=== PATIENT | female | born 2000 | race Caucasian/White ===

== ENCOUNTER 2023-07-28 11:51 | Emergency (ER) | payer OTHER, SELFPAY ==
[2023-07-28 11:55] VITALS: BP 122/85
--- NOTE | 2023-07-28 12:42 | ED.GENMED ---
History of Present Illness
General
Chief Complaint: Anxiety
Source: patient
Exam Limitations: none
Time Seen by Provider: 07/28/23 12:23
Nursing documentation reviewed up to this point in time: agreed with
Travel History
Have you had any contact with someone who has COVID-19?: No
Do you have any symptoms of coronavirus? Fever > 100 degrees, chills, cough, shortness of breath, sore throat, loss of taste or smell, muscle aches, or headache?: No
History of Present Illness
History of Present Illness:
22-year-old female presents to the ER for evaluation of acute anxiety. Patient complains of feeling very anxious restless feels like she is unable to sit still. She has no appetite. She had similar symptoms yesterday was seen at [facility]. She was given 1 oral Ativan and sent home. She believes she has a history of anxiety but has never been evaluated or had therapy for this. She is not on any medications. She reports is a lot of family things going on which she thinks
is triggering this. She dropped out of college and quit her job. She currently lives with a partner. She does feel safe at home. She denies any suicidal thoughts.
She reports because of her symptoms she cannot eat and is unable to calm down.
Past History
Past History
ED Past Medical History: None
ED Past Surgical History: None
Social History
Tobacco: Non-smoker
Alcohol: None
Drug: None
Personal: Single
Employment: Student
Review of Systems
Review of Systems
Allergies reviewed?: Yes
Other source history: other (Patient's partner)
All Other Systems: ROS reviewed and negative except as documented in HPI and ROS
Constitutional: Reports no symptoms
Respiratory: Reports no symptoms
Cardiac: Reports no symptoms
ABD/GI: Reports no symptoms
: Reports no symptoms
Musculoskeletal: Reports no symptoms
Skin: Reports no symptoms
Endocrine: Reports no symptoms
Hematologic/Lymphatic: Reports no symptoms
Psychiatric: Reports anxiety; Denies suicidal
Phy Exam
General Physical Exam
General Presentation: no apparent distress
General age: appears stated age
General Skin: warm and dry
General Habitus: normal
General Mental: alert
General Hydration: appears well hydrated
Cardiovascular Exam
Cardiovascular Exam: regular rate/rhythm, no murmur and normal peripheral pulses
Pulmonary Exam
Pulmonary Exam: lungs clear and no respiratory distress
Neurological Exam
Neurological Exam: alert and oriented x3
Skin Exam
Skin Exam: normal color and warm/dry
Psychiatric Exam
Psychiatric Exam: anxious and other (Tearful)
Course
Orders/Labs/Results
Orders:
Orders
07/28/23 12:40
Lorazepam [Ativan] 0.5 mg PO NOW STA
07/28/23 12:44
Crisis Consult Urgent
Reason for Consult: eval for acute anxiety attack
07/28/23 13:28
Ondansetron Orally Disint [Zofran Odt (Orally Disintegrating)] 4 mg PO NOW STA
Vital Signs
Initial and Last Documented VS:
Initial Vital Signs
Temp Pulse Resp BP Pulse Ox
97.7 F 121 18 122/85 98
07/28/23 11:55 07/28/23 11:55 07/28/23 11:55 07/28/23 11:55 07/28/23 11:55
Last Documented Vital Signs
Temp Pulse Resp BP Pulse Ox
97.7 F 85 18 122/85 98
07/28/23 11:55 07/28/23 13:36 07/28/23 11:55 07/28/23 11:55 07/28/23 11:55
MDM/Problems Addressed
Differential Diagnosis Includes:
not limited to : anxiety
MDM/Problems Addressed:
Symptoms are consistent with anxiety. Patient admits to feeling very anxious has a lot of family issues going on at the moment especially regarding father. She reports she quit school quit her job and has had anxiety. She denies any suicidal
thoughts. She was at [facility] yesterday given 1 dose of Ativan but not given any outpatient resources. Today patient reports anxiety is the same she feels very anxious cannot calm himself down. She has no other physical complaints.
She denies suicidal thoughts. Patient initially was tachycardic on arrival however after speaking the patient heart rate decreased. She was given 1 small dose of 0.5 mg of Ativan here in the ER. I did have crisis evaluate patient they gave her
outpatient resources. She was monitored here I did discuss with patient and partner the importance of following up for outpatient resources to further discuss and treat anxiety.
*Pulse Oximetry
Patient hypoxic: no
*Critical Care Note
Total Time (30-74mins, 75-104mins- exclusive of procedures): Not Applicable
ED Attending Note
-
Portions of this chart may have been created with voice recognition software.� Occasional wrong word or��sound alike� substitutions may have occurred due to the inherent limitations of voice recognition software.
Discharge Plan
Departure
Patient Disposition: Home (Routine Discharge)
Date of Disposition: 07/28/23
Time of Disposition: 14:40
Patient with high blood pressure during this ER visit?: Yes
Condition: Fair
Covid-19: Not Applicable
Discharge Problem:
Anxiety
Instructions: Anxiety, Adult (DC), BLOOD PRESSURE
Referrals:
NONE,* [Family Provider] -
Activity Restrictions/Additional Instructions:
As discussed you were given information for outpatient resources for further evaluation and treatment of anxiety .
Return if any worsening of symptoms including if any suicidal thoughts.
Interventions
Interventions:
*Risk Screen - Suicide Last Done: 07/28/23 13:08
*Neglect/Abuse Screening Last Done: 07/28/23 13:08
*ED COVID-19 Vaccine History Last Done: 07/28/23 11:58
ED-Psychological Assessment Last Done: 07/28/23 12:49
Discharge Date and Time
Print Language: LEBANESE
[2023-07-28] MEDS: ATIVAN 0.5 MG PO (12:47)
[2023-07-28] MEDS: ZOFRAN ODT (ORALLY DISINTEGRATING) 4 MG PO (13:31)
== END 2023-07-28 14:49 | disposition home or self-care (01) ==
LOC: EMR 11:51
PROVIDERS: EMERGENCY PHYSICIAN Student in an Organized Health Care Education/Training Program
DX: F41.9 Anxiety disorder, unspecified (principal); R03.0 Elevated blood-pressure reading, without diagnosis of hypertension; Z63.9 Problem related to primary support group, unspecified
CPT/HCPCS: 99283

== ENCOUNTER 2023-07-29 11:54 | Emergency (ER) | payer OTHER, SELFPAY ==
[2023-07-29 11:58] VITALS: BP 130/85; BMI 24.2
[2023-07-29] MEDS: ATIVAN 1 MG PO (14:13)
[2023-07-29] MEDS: PROTONIX IV 40 MG IV (14:22)
[2023-07-29] MEDS: NSS 1000 IV (14:23)
[2023-07-29 14:37] LABS: Hematocrit 41.1 % (37.0-47.0); Hemoglobin 14.6 g/dL (12.0-16.0); Mean Corp Hgb Conc. 35.5 g/dL (33.0-37.0); Mean Corpuscular Hgb 30.2 pg (27.0-31.0); Mean Corpuscular Volume 85.1 fL (81.0-99.0); Mean Platelet Volume 11.7 fL (7.4-10.4); Platelet Count 211 10^3/uL (130-400); Red Blood Cell Count 4.83 10^6/uL (4.20-5.40); Red Cell Dist. Width 12.5 % (11.5-14.5); Urine Albumin Negative (Neg - Trace); Urine Bilirubin Negative (Negative); Urine Character Clear (Clear); Urine Color Yellow; Urine Glucose Negative (Negative); Urine Ketone 3+ (Negative); Urine Leukocyte 1+ (Negative); Urine Nitrite Negative (Negative); Urine Occult Blood 1+ (Negative); Urine Specific Gravity 1.015 (<1.030); Urine Urobilinogen Negative (Neg - 1+); White Blood Cell Count 10.6 10^3/uL (4.8-10.8)
[2023-07-29 14:51] LABS: Blood Urea Nitrogen 14 mg/dl (7-17); Calcium 10.3 mg/dl (8.4-10.2); Carbon Dioxide 22 mmol/L (22-30); Chloride 104 mmol/L (98-107); Estimated Creatinine Clearance 118 ml/min; Glucose 97 mg/dl (70-99); Sodium 137 mmol/L (135-145); eGFR > 60.00
[2023-07-29 14:54] LABS: HCG, Serum Qualitative Screen Negative
--- NOTE | 2023-07-29 15:02 | ED.GENMED ---
History of Present Illness
General
Chief Complaint: Anxiety
Source: patient and other (Partner)
Exam Limitations: none
Time Seen by Provider: 07/29/23 13:40
Nursing documentation reviewed up to this point in time: agreed with
Travel History
Have you had any contact with someone who has COVID-19?: No
Do you have any symptoms of coronavirus? Fever > 100 degrees, chills, cough, shortness of breath, sore throat, loss of taste or smell, muscle aches, or headache?: No
History of Present Illness
History of Present Illness:
Patient with history of anxiety disorder, presents to ED secondary to increased anxiety, nausea, inability to sleep, and decreased appetite over the past 4 days. Patient states that her symptoms started, as she is current experiencing difficulties
with her family. Patient has been evaluated in multiple ED since onset of her symptoms. Patient has been provided with short course of Ativan, which is not helping at home. Denies vomiting. Denies diarrhea. Denies fever. Denies coughing.
Denies chest pain or palpitations.
Past History
Past History
ED Past Medical History: None
ED Past Surgical History: None
Social History
Tobacco: Non-smoker
Alcohol: None
Drug: None
Personal: Single
Employment: Student
Review of Systems
Review of Systems
Allergies reviewed?: Yes
All Other Systems: ROS reviewed and negative except as documented in HPI and ROS
Constitutional: Reports no symptoms
EENT: Reports no symptoms
Respiratory: Reports no symptoms
Cardiac: Reports no symptoms
ABD/GI: Reports nausea
: Reports no symptoms
Skin: Reports no symptoms
Neurological: Reports no symptoms
Psychiatric: Reports anxiety
Phy Exam
Physical Exam
Physical Exam:
Physical Exam
General: mild distress, not acutely ill. afebrile
Head: nc/at. eomi
Neck: supple. no meningeal signs.
Heart: s1/s2 regular rate and rhythm, no murmur. equal radial pulses.
Lungs: no acute respiratory distress. clear bilaterally
Abdomen: normal bowel sounds. not tender.
Neuro: alert and oriented. no focal neurological deficits
Skin: no rash
Psychiatric: well kept. interactive and cooperative. anxious appearing
Extremities: no edema. no calf tenderness.
Course
Orders/Labs/Results
Orders:
Orders
07/29/23 13:50
Test Result ONCE
07/29/23 13:51
0.9% Sodium Chloride 1000 ml [Nss] 1,000 ml IV BOLUS
Lorazepam [Ativan] 1 mg PO NOW STA
Pantoprazole [Protonix IV] 40 mg IV NOW STA
07/29/23 14:23
Complete Blood Count/No Diff Urgent
Fentanyl, Urine Urgent
TSH Urgent
Urinalysis Reflex To Culture Urgent
Date Specimen was Collected: 07/29/23
Time Specimen was Collected: 14:17
Urine Drug Abuse Screen Urgent
Date Specimen was Collected: 07/29/23
Time Specimen was Collected: 14:17
Urine Microscopic Reflex Cult Urgent
Urine Culture Urgent
PABLITO Source: U
Specimen Description:
Date Specimen was Collected: 07/29/23
Time Specimen was Collected: 14:17
07/29/23 14:24
Basic Metabolic Panel Urgent
HCG, Serum Qualitative Screen Urgent
Magnesium Urgent
07/29/23 15:02
diazePAM [Valium Injection] 2 mg IV NOW STA
07/29/23 16:12
Crisis Consult Urgent
Reason for Consult: anxiety
Abnormal Lab Results
07/29/23 07/29/23
14:23 14:24
MPV 11.7 H fL
(7.4-10.4)
Calcium 10.3 H mg/dl
(8.4-10.2)
Urine Ketones 3+ A
(Negative)
Ur Occult Blood Reflex 1+ A
(Negative)
Leukocyte Esterase Rfl 1+ A
(Negative)
Urine RBC 3-6 A /HPF
(0-2)
Urine Bacteria (Reflex) Few A
(Negative)
U Benzodiazepines Scrn Positive H
(Negative)
U Marijuana (THC) Screen Positive H
(Negative)
07/29/23 14:23
07/29/23 14:24
Vital Signs
Initial and Last Documented VS:
Initial Vital Signs
Pulse Resp BP Pulse Ox
81 20 130/85 96
07/29/23 11:58 07/29/23 11:58 07/29/23 11:58 07/29/23 11:58
Last Documented Vital Signs
Temp Pulse Resp BP Pulse Ox
98.7 F 75 16 121/57 99
07/29/23 12:02 07/29/23 19:14 07/29/23 19:14 07/29/23 19:14 07/29/23 19:14
MDM/Problems Addressed
MDM/Problems Addressed:
Blood work results reviewed - no acute findings.
Pt evaluated by viscosity worker - evaluation/treatment plan formulated, including urgent outpatient evaluation on Monday. Pt is otherwise afebrile, hemodynamically stable, and expresses understanding, at time of discharge to the care of her partner.
*Critical Care Note
Total Time (30-74mins, 75-104mins- exclusive of procedures): Not Applicable
ED Attending Note
-
Portions of this chart may have been created with voice recognition software.� Occasional wrong word or��sound alike� substitutions may have occurred due to the inherent limitations of voice recognition software.
Discharge Plan
Departure
Patient Disposition: Home (Routine Discharge)
Date of Disposition: 07/29/23
Time of Disposition: 17:24
Patient with high blood pressure during this ER visit?: Yes
Discharge Problem:
Anxiety
Instructions: Anxiety, Adult (DC)
Referrals:
Howard Salgado MD [Family Provider] -
Activity Restrictions/Additional Instructions:
As discussed, please follow up with already provided outpatient resources for further evaluation and treatment on Monday
Interventions
Interventions:
*Risk Screen - Suicide Last Done: 07/29/23 11:58
*General Assessment Last Done: 07/29/23 19:15
*Neglect/Abuse Screening Last Done: 07/29/23 11:58
ED- Fall Risk Assessment Last Done: 07/29/23 11:58
*ED COVID-19 Vaccine History Last Done: 07/29/23 11:58
*Nursing Disposition Last Done: 07/29/23 19:15
ED-Psychological Assessment Last Done: 07/29/23 13:09
Discharge Date and Time
Discharge Date/Time: 07/29/23 17:10
Print Language: IRISH
[2023-07-29] MEDS: VALIUM INJECTION 2 MG IV (15:07)
[2023-07-29 15:12] LABS: Urine Squamous Cell >30 /LPF (Few)
[2023-07-29 15:13] LABS: Urine Bacteria Few (Negative)
[2023-07-29 15:18] LABS: Amphetamines Negative (Negative); Barbiturates Negative (Negative); Benzodiazepines Positive (Negative); Buprenorphine Negative (Negative); Cocaine Negative (Negative); Marijuana Positive (Negative); Methadone Negative (Negative); Methamphetamines Negative (Negative); Opiates Negative (Negative); Phencyclidine Negative (Negative); Tricyclic Antidepressants Negative (Negative)
[2023-07-29 15:20] LABS: TSH 0.84 uIU/ml (0.47-4.68)
[2023-07-29 15:25] LABS: Fentanyl, Urine Negative (Negative)
[2023-07-29 19:14] VITALS: BP 121/57
== END 2023-07-29 17:10 | disposition home or self-care (01) ==
LOC: EMR 11:54
PROVIDERS: EMERGENCY PHYSICIAN Emergency Medicine; FAMILY PHYSICIAN Internal Medicine
DX: F41.9 Anxiety disorder, unspecified (principal); R11.0 Nausea; G47.00 Insomnia, unspecified; R63.0 Anorexia; R03.0 Elevated blood-pressure reading, without diagnosis of hypertension
CPT/HCPCS: 99284; 96374; 96375; 96361; 80048; 80306; 80307; 81003; 81015; 83735; 84443; 84703; 85027; 87086